=== PATIENT | female | born 1985 | race Caucasian/White ===

== ENCOUNTER 2024-01-29 20:44 | Outpatient (CLI) | payer OTHER, SELFPAY | END 2024-01-29 20:45 | disposition home or self-care (01) | LOC: SLEEP 20:50 | PROVIDERS: PCP Student in an Organized Health Care Education/Training Program; Visit Provider Internal Medicine | DX: G47.33 Obstructive sleep apnea (adult) (pediatric) (principal) | CPT/HCPCS: 95811 ==